=== PATIENT | female | born 2000 | race American Indian/Alaskan Native ===

== ENCOUNTER 2021-04-11 17:26 | Outpatient (CLI) | payer MEDICAID ==
[2021-04-11] MEDS ORDERED: LACTATED RINGERS 1,000 ML ONE (18:01)
[2021-04-11] MEDS ORDERED: LACTATED RINGERS 1,000 ML IV ONE ×2 (18:05→19:30)
[2021-04-11 19:42] LABS: Bacteria,Urine 1+ /HPF (Negative); Bilirubin,Urine NEG (Negative); Blood,Urine NEG (Negative); Color,Urine Yellow (Yellow); Protein,Urine <15 mg/dL mg/dL (Negative); WBC,Urine < 1.0 /HPF (0.0-6.0)
--- NOTE | 2021-04-11 19:42 | Ultrasound Report ---
ULTRASOUND OBSTETRIC LIMITED ULTRASOUND BIOPHYSICAL PROFILE INDICATION / CLINICAL INFORMATION: decreased movement. Clinical Gestational Age (GA) in weeks, days: 37 weeks 2 days TECHNIQUE: Transabdominal. COMPARISON: None available. FINDINGS: BREATHING MOVEMENT = 2 GROSS BODY MOVEMENT = 2 TONE = 2 QUALITATIVE AMNIOTIC FLUID VOLUME = 2 TOTAL BIOPHYSICAL SCORE = 8/8 HEART RATE (beats per minute): 135 ADDITIONAL FINDINGS: None. IMPRESSION: 1. Biophysical Score = 8/8 . 2. Single living gestation. Signer Name: Tal Sidhu MD Signed: 04/11/2021 7:38 PM Workstation Name: [id number]
[2021-04-11] MEDS ORDERED: ceFAZolin/Water 2 GM/20 ML 2 GM/20 ML SYRINGE IV SCH (20:00)
[2021-04-11] MEDS ORDERED: TERBUTALINE 1 MG/1 ML INJ SUB-Q ONE (20:03)
[2021-04-11 20:56] VITALS: BP 121/66
== END 2021-04-11 21:14 | disposition home or self-care (01) ==
LOC: TRG 17:26 → APU 17:28 → TRG 21:14
PROVIDERS: ATTEND Obstetrics & Gynecology
DX: O26.893 Other specified pregnancy related conditions, third trimester (principal); O62.9 Abnormality of forces of labor, unspecified; M54.9 Dorsalgia, unspecified; R10.2 Pelvic and perineal pain; Z3A.37 37 weeks gestation of pregnancy
CPT/HCPCS: 59025; 76819; 81001; 96361; 96365; 96366; J0690; J7120; 96360

== ENCOUNTER 2021-04-22 02:21 | Outpatient (CLI) | payer MEDICAID ==
[2021-04-22] MEDS ORDERED: LACTATED RINGERS 1,000 ML ONE (03:29)
[2021-04-22 04:28] LABS: Basophils % (Auto) 0.6 % (0.0-1.8); Eosinophils % (Auto) 0.5 % (0.0-4.3); Hematocrit 25.2 % (30.3-42.9); Hemoglobin 7.9 gm/dl (10.1-14.3); Lymphocytes # (Auto) 1.8 K/mm3 (1.2-5.4); Lymphocytes % (Auto) 23.4 % (13.4-35.0); Mean Corpuscular HGB Conc 31 % (30-34); Mean Corpuscular Volume 78 fl (79-97); Monocytes # (Auto) 0.5 K/mm3 (0.0-0.8); Monocytes % (Auto) 6.8 % (0.0-7.3); Platelet Count 169 K/mm3 (140-440); Red Blood Count 3.22 M/mm3 (3.65-5.03)
[2021-04-22 04:34] LABS: Protein/Creatinine Ratio,Urine 0.14
[2021-04-22 04:47] LABS: Alanine Aminotransferase 6 units/L (7-56); Albumin 3.3 g/dL (3.9-5); Blood Urea Nitrogen 6 mg/dL (7-17); Calcium 8.5 mg/dL (8.4-10.2); Hemolysis Index 9; Uric Acid 3.2 mg/dL (3.5-7.6)
[2021-04-22 04:48] LABS: BUN/Creatinine Ratio 12
[2021-04-22 07:05] VITALS: BP 120/66
--- NOTE | 2021-04-22 07:31 | Ultrasound Report ---
ULTRASOUND OBSTETRIC COMPLETE INDICATION / CLINICAL INFORMATION: OLI, EFW, presentation, placenta location. Clinical Gestational Age (GA) in weeks, days: 38 weeks 6 days TECHNIQUE: Transabdominal. COMPARISON: 04/11/2021 FINDINGS: NUMBER: Single PRESENTATION: cephalic PLACENTA: Fundal and free of the os. MATERNAL ADNEXA: No significant abnormality. AMNIOTIC FLUID VOLUME: normal AMNIOTIC FLUID INDEX (OLI) in cm (if measured): 11.6 MEASUREMENTS: - Biparietal Diameter = 9.7 cm = 39 weeks 4 days - Head Circumference = 34.3 cm = 39 weeks 4 days - Abdominal Circumference = 35.9 cm = 39 weeks 6 days - Femur Length = 7.2 cm = 36 weeks 5 days - Estimated Weight (in grams, if calculated): 3689 - Heart Rate (beats per minute): 129 ADDITIONAL FINDINGS: None. AVERAGE ULTRASOUND AGE (AUA) in weeks, days = 39 weeks 0 days IMPRESSION: 1. Single intrauterine with AUA of 39 weeks 0 days, as above. 2. No significant sonographic abnormality. Signer Name: Sean Hayes MD Signed: 04/22/2021 7:26 AM Workstation Name: [id number]
== END 2021-04-22 07:23 | disposition home or self-care (01) ==
LOC: TRG 02:21 → APU 02:24 → TRG 07:23
PROVIDERS: ATTEND Obstetrics & Gynecology Gynecology
DX: O26.853 Spotting complicating pregnancy, third trimester (principal); O26.893 Other specified pregnancy related conditions, third trimester; R06.02 Shortness of breath; Z3A.38 38 weeks gestation of pregnancy
CPT/HCPCS: 36415; 76816; 80053; 82570; 83615; 84156; 84550; 85025

== ENCOUNTER 2021-05-14 16:41 | Observation (INO) | payer MEDICAID ==
[2021-05-14] MEDS ORDERED: SODIUM CHLORIDE 0.9% 1000 ML IV SOLN IV ONE (16:56)
[2021-05-14] MEDS ORDERED: MORPHINE 4 MG/1 ML INJ IV ONE (16:57)
[2021-05-14] MEDS ORDERED: AMPICILLIN 1,000 MG in SODIUM CHLORIDE 0.9% 50 ML IV ONE (16:57)
[2021-05-14] MEDS ORDERED: CLINDAMYCIN 600 MG/50 mL 600 MG/50 ML BAG IV ONE (16:57)
[2021-05-14] MEDS ORDERED: ONDANSETRON 4 MG/2 ML INJ IV ONE (16:57)
[2021-05-14] MEDS ORDERED: GENTAMICIN 120 MG in SODIUM CHLORIDE 0.9% 100 ML IV STA (16:57)
[2021-05-14] MEDS ORDERED: SODIUM CHLORIDE 0.9% 1000 ML 1,000 ML IV ONE (16:59)
[2021-05-14] MEDS ORDERED: ACETAMINOPHEN 325 MG TAB PO ONE (17:02)
--- NOTE | 2021-05-14 17:02 | Emergency Department Report ---
ED General Adult HPI - General Chief complaint: Abdominal Pain Stated complaint: left side pain, pt delivered baby 8 days ago PUI?: Yes Time Seen by Provider: 05/14/21 16:48 Source: patient, EMS ( EMS documentation not available at time of chart dictation ), RN notes reviewed, old records reviewed Mode of arrival: Stretcher Limitations: Physical Limitation - History of Present Illness Initial comments: During the history and physical examination I am chaperoned by nurse Kinza Ervin This patient is a 20-year-old female who was recently admitted to the obstetrics service, in active labor, and had a vacuum-assisted delivery without complications. The patient presents to the ER today with complaints of suprapubic and left lower quadrant abdominal pain, nausea, malaise, fatigue and lightheadedness. As per verbal report from emergency medical services, patient tachycardic in the field, febrile, and hypotensive. -: Gradual, hour(s) Location: abdomen Severity scale (0 -10): 0 Quality: aching Consistency: constant Improves with: rest Worsens with: movement - Related Data Previous Rx's Medication Instructions Recorded Last Taken Type Benzocaine/Menthol [Dermoplast 78 gm TP TID PRN #1 1000units 05/07/21 Unknown Rx Pain Relieving [place]] Docusate Sodium [Colace] 100 mg PO QDAY #60 capsule 05/07/21 Unknown Rx Ferrous Sulfate [Feosol 325 MG tab] 325 mg PO QDAY #90 tablet 05/07/21 Unknown Rx Ibuprofen [Motrin 800 MG tab] 800 mg PO Q6H PRN #30 tablet 05/07/21 Unknown Rx Allergies Allergy/AdvReac Type Severity Reaction Status Date / Time diphenhydramine Allergy Rash Verified 04/11/21 17:39 [From Benadryl] ED Review of Systems ROS: Stated complaint: left side pain, pt delivered baby 8 days ago Other details as noted in HPI Constitutional: fever, malaise, weakness Eyes: denies: eye discharge ENT: denies: epistaxis Respiratory: denies: cough Cardiovascular: denies: chest pain Gastrointestinal: abdominal pain, nausea. denies: vomiting Genitourinary: denies: dysuria Neurological: headache, weakness ED Past Medical Hx - Past Medical History Hx Hypertension: No Hx Congestive Heart Failure: No Hx Diabetes: No Hx Deep Vein Thrombosis: No Hx Renal Disease: No Hx Sickle Cell Disease: No Hx Seizures: No Hx Asthma: Yes Hx COPD: No Hx HIV: No - Social History Smoking Status: Former Smoker - Medications Home Medications: Home Medications Medication Instructions Recorded Confirmed Last Taken Type Benzocaine/Menthol [Dermoplast 78 gm TP TID PRN #1 1000units 05/07/21 Unknown Rx Pain Relieving [place]] Docusate Sodium [Colace] 100 mg PO QDAY #60 capsule 05/07/21 Unknown Rx Ferrous Sulfate [Feosol 325 MG tab] 325 mg PO QDAY #90 tablet 05/07/21 Unknown Rx Ibuprofen [Motrin 800 MG tab] 800 mg PO Q6H PRN #30 tablet 05/07/21 Unknown Rx ED Physical Exam - General Limitations: Physical Limitation General appearance: alert, other (Patient is listless but arouses) - Head Head exam: Present: atraumatic, normocephalic - Eye Eye exam: Present: normal appearance, EOMI. Absent: nystagmus - ENT ENT exam: Present: normal exam, normal orophraynx, mucous membranes moist, normal external ear exam - Neck Neck exam: Present: normal inspection, full ROM. Absent: tenderness, meningismus - Respiratory Respiratory exam: Present: normal lung sounds bilaterally. Absent: respiratory distress, wheezes, rales, rhonchi, stridor, decreased breath sounds - Cardiovascular Cardiovascular Exam: Present: normal rhythm, tachycardia, normal heart sounds. Absent: bradycardia, irregular rhythm, systolic murmur, diastolic murmur, rubs, gallop - GI/Abdominal GI/Abdominal exam: Present: soft, tenderness (There is suprapubic tenderness), hernia (There is a reducible umbilical hernia). Absent: distended, guarding, rebound, rigid - Extremities Exam Extremities exam: Present: normal inspection, full ROM, other (2+ pulses noted in the bilateral upper and lower extremities. There is no palpable cord. negative Homans sign. Muscular compartments are soft. The pelvis is stable.). Absent: pedal edema, calf tenderness - Back Exam Back exam: Present: normal inspection. Absent: tenderness, CVA tenderness (R), CVA tenderness (L), paraspinal tenderness, vertebral tenderness - Neurological Exam Neurological exam: Present: alert, oriented X3, other (No facial droop. Tongue midline. Extraocular movements intact bilaterally. Facial sensation intact to light touch in V1, V2, V3 distribution bilaterally. 5 and a 5 strength in 4 extremities. Sensation intact to light touch in 4 extremities.). Absent: motor sensory deficit - Psychiatric Psychiatric exam: Present: anxious - Skin Skin exam: Present: warm, dry, intact, normal color. Absent: rash ED Course Vital Signs 05/14/21 05/14/21 16:45 17:30 Temperature 102.2 F H 101.5 F H Pulse Rate 114 H 105 H Respiratory 16 21 Rate Blood Pressure 106/70 114/64 [Right] O2 Sat by Pulse 98 99 Oximetry - Reevaluation(s) Reevaluation #1: 05/14/21 17:25 Differential diagnosis, including but not limited to: endometritis, sepsis, bacteremia, retained products of conception Plan: 20-year-old female, meeting sepsis criteria, manifest by fever, tachycardia, history of hypotension, status post vacuum-assisted delivery here at this institution last week, likely presenting with endometritis/retained products of conception and sepsis. Code sepsis called overhead. Place patient on cardiac/vascular sonographer, establish 2 large-bore IVs, start IV fluid resuscitation, and medicate empirically with gentamicin, clindamycin, and ampicillin. Have requested stat gynecology consult, currently awaiting callback from covering bandage winding machine operator. Recommended admission to the gynecology service, have also ordered a stat bedside transvaginal ultrasound to be performed to assess for retained products of conception. I discussed this with the patient. She is agreeable to the plan of care. Blood pressure improved. Patient awake moving 4 extremities, protecting airway, and not encephalopathic at this time 05/14/21 17:46 Dr Rose to admit 05/14/21 19:11 Patient looking much improved. Blood pressure improved. She is eating ice chips Dr. Rose requests additional 300 mg of clindamycin and additional gram of ampicillin. ED Medical Decision Making - Lab Data Result diagrams: 05/14/21 17:04 05/14/21 17:04 Vital Signs 05/14/21 16:45 Temperature 102.2 F H Pulse Rate 114 H Respiratory 16 Rate Blood Pressure 106/70 [Right] O2 Sat by Pulse 98 Oximetry Lab Results 05/14/21 05/14/21 05/14/21 Range/Units 17:04 17:04 17:04 WBC 13.6 H (4.5-11.0) K/mm3 RBC 3.68 (3.65-5.03) M/mm3 Hgb 9.3 L (10.1-14.3) gm/dl Hct 28.4 L (30.3-42.9) % MCV 77 L (79-97) fl MCH 25 L (28-32) pg MCHC 33 (30-34) % RDW 18.5 H (13.2-15.2) % Plt Count 237 (140-440) K/mm3 Seg Neutrophils % Hedge Fund Trader PT 13.0 (12.2-14.9) Sec. INR 0.89 (0.87-1.13) APTT 29.1 (24.2-36.6) Sec. Sodium 135 L (137-145) mmol/L Potassium 4.1 (3.6-5.0) mmol/L Chloride 103.0 (98-107) mmol/L Carbon Dioxide 18 L (22-30) mmol/L Anion Gap 18 mmol/L BUN 13 (7-17) mg/dL Creatinine 0.7 (0.6-1.2) mg/dL Estimated GFR > 60 ml/min BUN/Creatinine Ratio 19 % Glucose 87 (65-100) mg/dL Lactic Acid (0.7-2.0) mmol/L Calcium 9.0 (8.4-10.2) mg/dL Total Bilirubin 0.50 (0.1-1.2) mg/dL AST 25 (5-40) units/L ALT 13 (7-56) units/L Alkaline Phosphatase 176 H (35-129) units/L Total Protein 6.8 (6.3-8.2) g/dL Albumin 4.2 (3.9-5) g/dL Albumin/Globulin Ratio 1.6 % 05/14/21 Range/Units 17:04 WBC (4.5-11.0) K/mm3 RBC (3.65-5.03) M/mm3 Hgb (10.1-14.3) gm/dl Hct (30.3-42.9) % MCV (79-97) fl MCH (28-32) pg MCHC (30-34) % RDW (13.2-15.2) % Plt Count (140-440) K/mm3 Seg Neutrophils % PT (12.2-14.9) Sec. INR (0.87-1.13) APTT (24.2-36.6) Sec. Sodium (137-145) mmol/L Potassium (3.6-5.0) mmol/L Chloride (98-107) mmol/L Carbon Dioxide (22-30) mmol/L Anion Gap mmol/L BUN (7-17) mg/dL Creatinine (0.6-1.2) mg/dL Estimated GFR ml/min BUN/Creatinine Ratio % Glucose (65-100) mg/dL Lactic Acid 0.90 (0.7-2.0) mmol/L Calcium (8.4-10.2) mg/dL Total Bilirubin (0.1-1.2) mg/dL AST (5-40) units/L ALT (7-56) units/L Alkaline Phosphatase (35-129) units/L Total Protein (6.3-8.2) g/dL Albumin (3.9-5) g/dL Albumin/Globulin Ratio % - EKG Data -: EKG Interpreted by Md EKG shows normal: sinus rhythm Rate: tachycardia - EKG Data 05/14/21 17:27 The EKG is interpreted at 17: 04 Sinus tachycardia, rate 113 bpm. Normal axis, normal intervals, normal P wave axis, juvenile T wave inversion V3, high left ventricular voltage. Minimal motion artifact. Abnormal EKG. Not a STEMI. There is no prior for comparison. - Radiology Data Radiology results: pending, report reviewed, image reviewed ULTRASOUND PELVIS INDICATION: Sepsis from endometritis. TECHNIQUE: Transabdo tessa and Transvaginal. Duplex Color Doppler used: Yes. COMPARISON: OB ultrasound performed on 05/06/2021. FINDINGS: Uterus: Present. Size: 12.9 x 5.9 x 9.1 cm. Endometrial complex: Normal measuring 0.3 cm. Mass lesions: None. Additional findings: No findings to suggest retained X of conception or a significant amount of blood products along the endometrial canal. Right Ovary: Size: 3.8 x 2.7 x 4.0 cm Blood flow: Normal. Cyst or mass: None. Left Ovary: Size: 3.0 x 2.6 x 3.1 cm Blood flow: Normal. Cyst or mass: None. Urinary Bladder: Normal. Free Fluid: None. Additional Findings: None. IMPRESSION: 1. No acute sonographic abnormality of the pelvis. Signer Name: Saad Davila MD Signed: 05/14/2021 6:36 PM Workstation Name: [id number] Critical Care Time: Yes Critical care time in (mins) excluding proc time.: 45 Critical care attestation.: If time is entered above; I have spent that time in minutes in the direct care of this critically ill patient, excluding procedure time. ED Disposition Clinical Impression: Sepsis, septic endometritis Disposition: ADMITTED INPATIENT Is pt being admited?: Yes Does the pt Need Aspirin: No Condition: Serious Instructions: Abdominal Pain (ED) Referrals: LIBBY RUFFIN [Other] - 3-5 Days
[2021-05-14] MEDS ORDERED: GENTAMICIN/NS 120MG/100ML 120 MG/100 ML BAG IV STA (17:06)
[2021-05-14 17:24] LABS: Hematocrit 28.4 % (30.3-42.9); Hemoglobin 9.3 gm/dl (10.1-14.3); Mean Corpuscular HGB Conc 33 % (30-34); Mean Corpuscular Volume 77 fl (79-97); Platelet Count 237 K/mm3 (140-440); Red Blood Count 3.68 M/mm3 (3.65-5.03); Red Cell Distribution Width 18.5 % (13.2-15.2)
[2021-05-14 17:41] LABS: Alanine Aminotransferase 13 units/L (7-56); Albumin 4.2 g/dL (3.9-5); Blood Urea Nitrogen 13 mg/dL (7-17); Hemolysis Index 60; INR 0.89 (0.87-1.13); Partial Thromboplastin Time 29.1 Sec. (24.2-36.6)
[2021-05-14 17:43] LABS: BUN/Creatinine Ratio 19
[2021-05-14] MEDS ORDERED: AMPICILLIN/NS 1 GM/50 ML 1 GM/50 ML BAG IV ONE ×2 (18:00→20:00)
[2021-05-14 18:04] LABS: Anisocytosis 1+; Basophils % (Manual) 0 % (0.0-1.8); Eosinophils % (Manual) 0 % (0.0-4.3); Hypochromasia 1+; Platelet Estimate Consistent w Auto; Total Cells Counted 100; Toxic Granulation 1+; Toxic Vacuolation Few
[2021-05-14] MEDS ORDERED: CLINDAMYCIN 300 MG/50 mL 300 MG/50 ML BAG IV ONE (19:09)
[2021-05-14] MEDS ORDERED: AMPICILLIN 1 GM in SODIUM CHLORIDE 0.9% 50 ML IV ONE (19:09)
--- NOTE | 2021-05-14 19:40 | Ultrasound Report ---
ULTRASOUND PELVIS INDICATION: Sepsis from endometritis. TECHNIQUE: Transabdominal and Transvaginal. Duplex Color Doppler used: Yes. COMPARISON: OB ultrasound performed on 05/06/2021. FINDINGS: Uterus: Present. Size: 12.9 x 5.9 x 9.1 cm. Endometrial complex: Normal measuring 0.3 cm. Mass lesions: None. Additional findings: No findings to suggest retained X of conception or a significant amount of blood products along the endometrial canal. Right Ovary: Size: 3.8 x 2.7 x 4.0 cm Blood flow: Normal. Cyst or mass: None. Left Ovary: Size: 3.0 x 2.6 x 3.1 cm Blood flow: Normal. Cyst or mass: None. Urinary Bladder: Normal. Free Fluid: None. Additional Findings: None. IMPRESSION: 1. No acute sonographic abnormality of the pelvis. Signer Name: Saad Davila MD Signed: 05/14/2021 7:36 PM Workstation Name: [id number]
[2021-05-14] MEDS ORDERED: WITCH HAZEL/ GLYCERIN PAD TP PRN (22:03)
[2021-05-14] MEDS ORDERED: ONDANSETRON 4 MG/2 ML INJ IV PRN (22:03)
[2021-05-14] MEDS ORDERED: HYDROcodone/ACETAMINOPHEN 5-325 MG TAB PO PRN (22:03)
[2021-05-14] MEDS ORDERED: SODIUM CHLORIDE 0.9% 1000 ML 1,000 ML IV SCH (22:15)
--- NOTE | 2021-05-14 22:22 | History and Physical Report ---
History of Present Illness Date of examination: 05/14/21 Date of admission: 05/14/2021 Chief complaint: Pain History of present illness: 20 y/o is PPD #9 S/P VAVD and reports pain in abdomen and flank. There are subjective fevers. No chills or night sweats. She went to ED and T= 102.2 degree F with fundal tenderness. No CVAT. Sepsis was originally suspected, but lactate (-). endometritis suspected. She is admitted for IV antibiotics and observation. Past History Past Medical History: other (Anemia) Past Surgical History: no surgical history Family/Genetic History: none Social history: no significant social history - Obstetrical History : 2 Para: 1 Hx # Term Pregnancies: 1 Spontaneous Abortions: 1 Number of Living Children: 1 Medications and Allergies Allergies Allergy/AdvReac Type Severity Reaction Status Date / Time diphenhydramine Allergy Rash Verified 04/11/21 17:39 [From Benadryl] Home Medications Medication Instructions Recorded Confirmed Last Taken Type Benzocaine/Menthol [Dermoplast 78 gm TP TID PRN #1 1000units 05/07/21 Unknown Rx Pain Relieving [place]] Docusate Sodium [Colace] 100 mg PO QDAY #60 capsule 05/07/21 Unknown Rx Ferrous Sulfate [Feosol 325 MG tab] 325 mg PO QDAY #90 tablet 05/07/21 Unknown Rx Ibuprofen [Motrin 800 MG tab] 800 mg PO Q6H PRN #30 tablet 05/07/21 Unknown Rx Active Meds: Active Medications Hydrocodone Bitart/Acetaminophen (Hydrocodone/Acetaminophen 5-325 Mg Tab) 2 each PO Q6H PRN PRN Reason: Pain, Moderate (4-6) Docusate Sodium (Docusate Sodium 100 Mg Cap) 100 mg PO BID EJ Ferrous Sulfate (Ferrous Sulfate 325 Mg Tab) 325 mg PO BID EJ Clindamycin HCl (Cleocin 900 Mg/50 Ml) 900 mg in 50 mls @ 100 mls/hr IV Q8H EJ; Protocol Stop: 05/21/21 00:00 Gentamicin Sulfate 340 mg/ (Sodium Chloride) 108.5 mls @ 200 mls/hr IV Q24H EJ; Protocol Stop: 05/21/21 22:59 Sodium Chloride (Nacl 0.9% 1000 Ml) 1,000 mls @ 150 mls/hr IV DIRECT EJ Ibuprofen (Ibuprofen 800 Mg Tab) 800 mg PO Q6H EJ Ondansetron HCl (Ondansetron 4 Mg/2 Ml Inj) 4 mg IV Q8H PRN PRN Reason: Nausea And Vomiting Sodium Chloride (Sodium Chloride 0.9% 10 Ml Flush Syringe) 10 ml IV PRN NR Witch Laisha/Glycerin (Witch Laisha/ Glycerin Pad) 1 each TP PRN PRN PRN Reason: Hemorrhoid/cleansing/soothing Review of Systems All systems: negative Gastrointestinal: abdominal pain - Vital Signs Vital signs: Vital Signs Temp Pulse Resp BP Pulse Ox 102.2 F H 114 H 16 106/70 98 05/14/21 16:45 05/14/21 16:45 05/14/21 16:45 05/14/21 16:45 05/14/21 16:45 Temp Pulse Resp BP Pulse Ox 101.5 F H 105 H 21 114/64 99 05/14/21 17:30 05/14/21 17:30 05/14/21 17:30 05/14/21 17:30 05/14/21 17:30 - Physical Exam Breasts: Positive: normal Cardiovascular: Regular rate Lungs: Positive: Normal air movement Abdomen: Positive: soft Genitourinary (Female): Positive: normal external genitalia, normal perenium Vulva: both: normal Uterus: Positive: enlarged, tender Adnexa: both: normal Anus/Rectum: Positive: normal perianal skin, hemorrhoids Extremities: Positive: normal Deep Tendon Reflex Grade: Normal +2 Results Result Diagrams: 05/14/21 17:04 05/14/21 17:04 Abnormal lab results 05/14/21 05/14/21 Range/Units 17:04 17:04 WBC 13.6 H (4.5-11.0) K/mm3 Hgb 9.3 L (10.1-14.3) gm/dl Hct 28.4 L (30.3-42.9) % MCV 77 L (79-97) fl MCH 25 L (28-32) pg RDW 18.5 H (13.2-15.2) % Seg Neuts % (Manual) 91.0 H (40.0-70.0) % Lymphocytes % (Manual) 6.0 L (13.4-35.0) % Seg Neutrophils # Man 12.4 H (1.8-7.7) K/mm3 Lymphocytes # (Manual) 0.8 L (1.2-5.4) K/mm3 Sodium 135 L (137-145) mmol/L Carbon Dioxide 18 L (22-30) mmol/L Alkaline Phosphatase 176 H (35-129) units/L All other labs normal. Assessment and Plan - Patient Problems (1) endometritis Current Visit: Yes Status: Acute Plan to address problem: Admit to unit. Rx Clindamycin and Gentamicin for treatment. Re-evaluate in 24 to 48 hours. Blood culture and urine culture pending. Repeat CBC in AM.
[2021-05-14] MEDS: GENTAMICIN 340 MG in SODIUM CHLORIDE 0.9% 100 ML IV SCH (22:39)
[2021-05-15] MEDS: IBUPROFEN 800 MG TAB PO SCH ×4 (01:54→17:59)
[2021-05-15 03:24] LABS: Bilirubin,Urine NEG (Negative); Blood,Urine MOD (Negative); Color,Urine Yellow (Yellow); Mucus,Urine 3+ /HPF
--- NOTE | 2021-05-15 07:25 | Event Note ---
Date: 05/15/21 Elevated WBC in urine. 3+ yeast in urine. 4 epithelial. I spoke with US department and (B) renal US is to be performed shortly. IV gentamicin and clindamicin on board for suspected endometritis. CBC this AM is pending. After all pending investigations are resulted this morning, may consider ID consultation.
[2021-05-15 07:40] LABS: Basophils # (Auto) 0.1 K/mm3 (0.0-0.1); Basophils % (Auto) 0.5 % (0.0-1.8); Eosinophils # (Auto) 0.2 K/mm3 (0.0-0.4); Eosinophils % (Auto) 1.1 % (0.0-4.3); Hematocrit 29.1 % (30.3-42.9); Hemoglobin 8.9 gm/dl (10.1-14.3); Lymphocytes # (Auto) 1.6 K/mm3 (1.2-5.4); Lymphocytes % (Auto) 10.2 % (13.4-35.0); Mean Corpuscular HGB Conc 31 % (30-34); Mean Corpuscular Volume 78 fl (79-97); Monocytes # (Auto) 0.7 K/mm3 (0.0-0.8); Monocytes % (Auto) 4.2 % (0.0-7.3); Platelet Count 227 K/mm3 (140-440); Red Blood Count 3.73 M/mm3 (3.65-5.03); Red Cell Distribution Width 18.5 % (13.2-15.2)
--- NOTE | 2021-05-15 08:51 | Progress Note ---
Subjective - Subjective Date of service: 05/15/21 Interval history: Suspected PP endometritis vs UTI On abx afebrile Increased leukocytosis with left shift continue current plan of care repeat labs in AM awaiting final report for renal US Continue routine pp care, advance diet, encourage ambulation Stable at bedside Thanh Cunningham MD Objective - Vital Signs Latest vital signs: Vital Signs Temp Pulse Resp BP BP Pulse Ox 05/15/21 04:10 97.9 F 82 16 107/51 98 05/14/21 23:49 84 16 122/68 99 05/14/21 23:35 99.8 F H 108 H 18 132/67 98 05/14/21 17:30 101.5 F H 105 H 21 114/64 99 05/14/21 16:45 102.2 F H 114 H 16 106/70 98 Intake and Output 05/14/21 05/15/21 05/15/21 23:59 07:59 15:59 Intake Total 100 Output Total 700 Balance -600 Intake: Intake, Free Water 100 Output: Urine 700 Void 700 Other: Total, Output Amount 700 Voiding Method Toilet # Voids Void 1 Weight 68.039 kg - Labs Labs: Abnormal lab results 05/14/21 05/14/21 05/15/21 Range/Units 17:04 17:04 03:00 WBC 13.6 H (4.5-11.0) K/mm3 Hgb 9.3 L (10.1-14.3) gm/dl Hct 28.4 L (30.3-42.9) % MCV 77 L (79-97) fl MCH 25 L (28-32) pg RDW 18.5 H (13.2-15.2) % Lymph % (Auto) (13.4-35.0) % Seg Neutrophils % (40.0-70.0) % Seg Neuts % (Manual) 91.0 H (40.0-70.0) % Lymphocytes % (Manual) 6.0 L (13.4-35.0) % Seg Neutrophils # (1.8-7.7) K/mm3 Seg Neutrophils # Man 12.4 H (1.8-7.7) K/mm3 Lymphocytes # (Manual) 0.8 L (1.2-5.4) K/mm3 Sodium 135 L (137-145) mmol/L Carbon Dioxide 18 L (22-30) mmol/L Alkaline Phosphatase 176 H (35-129) units/L Urine WBC (Auto) 41.0 H (0.0-6.0) /HPF 05/15/21 Range/Units Unknown WBC 15.6 H (4.5-11.0) K/mm3 Hgb 8.9 L (10.1-14.3) gm/dl Hct 29.1 L (30.3-42.9) % MCV 78 L (79-97) fl MCH 24 L (28-32) pg RDW 18.5 H (13.2-15.2) % Lymph % (Auto) 10.2 L (13.4-35.0) % Seg Neutrophils % 84.0 H (40.0-70.0) % Seg Neuts % (Manual) (40.0-70.0) % Lymphocytes % (Manual) (13.4-35.0) % Seg Neutrophils # 13.1 H (1.8-7.7) K/mm3 Seg Neutrophils # Man (1.8-7.7) K/mm3 Lymphocytes # (Manual) (1.2-5.4) K/mm3 Sodium (137-145) mmol/L Carbon Dioxide (22-30) mmol/L Alkaline Phosphatase (35-129) units/L Urine WBC (Auto) (0.0-6.0) /HPF
--- NOTE | 2021-05-15 08:55 | Ultrasound Report ---
ULTRASOUND RENAL INDICATION / CLINICAL INFORMATION: Flank Pain. COMPARISON: None available. FINDINGS: RIGHT KIDNEY: Length = 9.1 cm. - Echogenicity: Normal. - Parenchymal Thickness: Normal. - Hydronephrosis: None. - Cyst / Mass: None. - Stones: None seen. LEFT KIDNEY: Length = 9.0 cm. - Echogenicity: Normal. - Parenchymal Thickness: Normal. - Hydronephrosis: None. - Cyst / Mass: None. - Stones: None seen. URINARY BLADDER: No significant abnormality. FREE FLUID: None. ADDITIONAL FINDINGS: None. IMPRESSION: 1. No significant abnormality. Signer Name: Inocente Jones MD Signed: 05/15/2021 8:51 AM Workstation Name: [id number]
[2021-05-15] MEDS: FERROUS SULFATE 325 MG TAB PO SCH ×2 (09:27→23:09)
[2021-05-15] MEDS: DOCUSATE SODIUM 100 MG CAP PO SCH ×2 (09:27→23:09)
[2021-05-15 12:35] LABS: Hepatitis C Virus Antibody Non-Reactive (NonReactive)
--- NOTE | 2021-05-15 19:25 | Electrocardiograph Report ---
[facility] Test Date: 2021-05-14 Test Time: 17:04:20 Pat Name: CHRISTIAN WHITESIDE Department: Room: 2104 1 Gender: F Pet Handler: CONCEPCION : 2000 Requested By: SEDRICK GILL Order Number: [id number] Reading MD: Gus Mercer Measurements Intervals [place] Rate: 113 P: 77 MT: 122 QRS: 75 QRSD: 64 T: -28 QT: 303 QTc: 417 Interpretive Statements Sinus tachycardia NSTW'S No previous ECG available for comparison Electronically Signed On 05-15-2021 19:25:27 EDT by Gus Mercer
[2021-05-16] MEDS: GENTAMICIN 340 MG in SODIUM CHLORIDE 0.9% 100 ML IV SCH (00:07)
[2021-05-16] MEDS: IBUPROFEN 800 MG TAB PO SCH ×3 (00:14→17:12)
--- NOTE | 2021-05-16 07:17 | Progress Note ---
Subjective - Subjective Date of service: 05/16/21 Interval history: PO abx routine postop care repeat labs DC home in AM Thanh Cunningham MD Patient reports: voiding normally, pain well controlled, ambulating normally Objective - Vital Signs Latest vital signs: Vital Signs Temp Pulse Resp BP Pulse Ox 05/16/21 05:25 98.1 F 77 20 123/78 100 05/16/21 00:21 98.9 F 96 H 18 102/60 99 05/15/21 20:20 98.0 F 92 H 16 108/64 98 05/15/21 19:34 18 99 05/15/21 15:20 98.0 F 84 18 124/64 99 05/15/21 12:37 97.6 F 90 18 124/57 100 05/15/21 10:06 18 99 05/15/21 07:39 98.1 F 84 18 113/63 99 Intake and Output 05/15/21 05/15/21 05/16/21 15:59 23:59 07:59 Intake Total 50 168 240 Output Total 400 500 900 Balance -171 -523 -541 Intake: IV 50 50 CLEOCIN 900 MG/50 mL 900 50 50 mg In 50 ml @ 100 mls/hr IV Q8H [facility] Rx#:[id number] Oral 118 Intake, Free Water 240 Output: Urine 400 500 900 Void 400 500 900 Other: Total, Intake Amount 118 Total, Output Amount 400 500 500 Voiding Method Toilet Toilet # Voids 1 Void 2 Weight 68.039 kg - Exam Breasts: Present: deferred Cardiovascular: Present: Regular rate Lungs: Present: Clear to auscultation Abdomen: Present: normal appearance, soft, normal bowel sounds Uterus: Present: normal, firm, fundal height below umbilicus Extremities: Present: normal - Labs Labs: Abnormal lab results 05/15/21 Range/Units Unknown WBC 15.6 H (4.5-11.0) K/mm3 Hgb 8.9 L (10.1-14.3) gm/dl Hct 29.1 L (30.3-42.9) % MCV 78 L (79-97) fl MCH 24 L (28-32) pg RDW 18.5 H (13.2-15.2) % Lymph % (Auto) 10.2 L (13.4-35.0) % Seg Neutrophils % 84.0 H (40.0-70.0) % Seg Neutrophils # 13.1 H (1.8-7.7) K/mm3
[2021-05-16] MEDS: FERROUS SULFATE 325 MG TAB PO SCH ×2 (10:52→22:30)
[2021-05-16] MEDS: DOCUSATE SODIUM 100 MG CAP PO SCH ×2 (10:52→22:30)
--- NOTE | 2021-05-16 11:16 | Discharge Summary ---
Providers - Providers Date of Admission: 05/14/21 22:03 Date of discharge: 05/17/21 Attending physician: JARRETT MUHAMMAD MD 05/14/21 16:58 Consult to Physician [CONS] Urgent Comment: Consulting Provider: FARIHA BYRD Physician Instructions: Reason For Exam: Sepsis secondary to endometritis Hospitalization Reason for admission: other ( endometritis) Condition at discharge: Serious Disposition: 01 HOME / SELF CARE / HOMELESS Plan - Provider Discharge Summary Additional instructions: [] Smoking cessation referral if applicable(refer to patient education folder for contact #) [] Refer to [facility] [address] Booklet Call your doctor immediately for: * Fever > 100.5 * Heavy vaginal bleeding ( >1 pad per hour) * Severe persistent headache * Shortness of breath * Reddened, hot, painful area to leg or breast * Drainage or odor from incision. * Keep incision clean and dry at all times and follow doctor's instructions regarding bathing/showering - Follow up plan Follow up: LIBBY RUFFIN [Other] - 3-5 Days JARRETT MUHAMMAD MD [Staff Physician] - 14 Days
[2021-05-16] MEDS: metroNIDAZOLE 500 MG TAB PO SCH (13:01)
[2021-05-17] MEDS: metroNIDAZOLE 500 MG TAB PO SCH ×2 (00:40→09:26)
[2021-05-17] MEDS: IBUPROFEN 800 MG TAB PO SCH ×3 (00:40→11:35)
[2021-05-17 08:00] LABS: Basophils % (Auto) 0.9 % (0.0-1.8); Eosinophils # (Auto) 0.3 K/mm3 (0.0-0.4); Eosinophils % (Auto) 6.6 % (0.0-4.3); Hematocrit 30.6 % (30.3-42.9); Hemoglobin 9.6 gm/dl (10.1-14.3); Lymphocytes # (Auto) 1.4 K/mm3 (1.2-5.4); Mean Corpuscular HGB Conc 31 % (30-34); Mean Corpuscular Volume 78 fl (79-97); Monocytes # (Auto) 0.3 K/mm3 (0.0-0.8); Monocytes % (Auto) 6.2 % (0.0-7.3); Platelet Count 233 K/mm3 (140-440); Red Blood Count 3.93 M/mm3 (3.65-5.03)
[2021-05-17 08:19] LABS: Red Cell Distribution Width 20.1 % (13.2-15.2)
[2021-05-17] MEDS: DOCUSATE SODIUM 100 MG CAP PO SCH (09:26)
[2021-05-17] MEDS: FERROUS SULFATE 325 MG TAB PO SCH (09:26)
[2021-05-17 12:46] VITALS: BP 101/57
== END 2021-05-17 13:15 | disposition home or self-care (01) ==
LOC: ED 16:41 → OB 22:03
PROVIDERS: ADMIT Obstetrics & Gynecology; ATTEND Obstetrics & Gynecology
DX: O86.04 Sepsis following an obstetrical procedure (principal); Z20.822 Contact with and (suspected) exposure to COVID-19; A41.9 Sepsis, unspecified organism; O86.12 Endometritis following delivery; D64.9 Anemia, unspecified; R10.32 Left lower quadrant pain; R53.83 Other fatigue; R42 Dizziness and giddiness; J45.909 Unspecified asthma, uncomplicated; Z87.891 Personal history of nicotine dependence
CPT/HCPCS: 36415; 76770; 76830; 76856; 80053; 80170; 81001; 82140; 85025; 85610; 85730; 86592; 86706; 86803; 86850; 86900; 86901; 87040; 87086; 87806; 93005; 96361; 96365; 96366; 96367; 96368; 96375; 96376; 99291; G0378; J0290; J1580; J2270; J2405; J3490; J7030; J7502; U0003; 85007; Q0162